=== PATIENT | male | born 1960 | race Caucasian/White ===

== ENCOUNTER 2024-02-20 14:04 | Outpatient (CLI) | payer OTHER, SELFPAY ==
--- NOTE | ~2024-02-20 | PE_ITS ---
EXAMINATION: PET_PETPSMAST_PT DATE: 02/20/2024 16:03 INDICATION: Prostate cancer. TECHNIQUE: 4.234 mCi of Ga-68 gozetotide was administered intravenously. Low dose computed tomography (CT) images were acquired from the base of the brain to the proximal thighs for attenuation correcti on and anatomic localization. Automated exposure control was employed. Dose-length product (DLP) was 1071 mGy-cm. Positron emission tomography (PET) images were acquired in the same distribution. COMPARISON: None FINDINGS: Head/neck: There are no pathologically enlarged lymph nodes. Chest: There is mild emphysema. There is mild atelectasis bilaterally. No pleural effusion. The heart size is normal. There are coronary artery calcifications. No pericardial effusion. Calcified mediast inal lymph nodes are consistent with old granulomatous disease. Abdomen/pelvis/proximal thighs: The liver, spleen, pancreas, and adrenal glands are normal. There are gallstones in the gallbladder which is normal in size. Right kidney is normal. There is a 7 mm stone in left kidney. There are no dilated loops of bowel. The appendix is not visualized. The prostate is normal in size with maximum SUV of 3.2. There are no pathologically enlarged lymph nodes. There is n o free intraperitoneal fluid. There is no osseous malignancy. IMPRESSION: 1. Normal-sized prostate with maximum SUV of 3.2. No evidence of metastatic disease. Reviewed, dictated and finalized at location [facility] IMPRESSION: 1. Normal-sized prostate with maximum SUV of 3.2. No evidence of metastatic dis ease.
== END 2024-02-20 14:05 | disposition home or self-care (01) ==
PROVIDERS: Visit Provider Urology
DX: C61 Malignant neoplasm of prostate (principal)
CPT/HCPCS: 78815; A9596